=== PATIENT | male | born 1975 | race Caucasian/White ===

== ENCOUNTER → 2017-09-17 12:01 | Outpatient (CLI) | payer OTHER, SELFPAY ==
[2017-09-17 12:23] LABS: Specimen Label KIT TEST
== END ==
PROVIDERS: PCP Family Medicine; Visit Provider Dentist
DX: K21.9 Gastro-esophageal reflux disease without esophagitis (principal); J01.00 Acute maxillary sinusitis, unspecified
CPT/HCPCS: 36415

== ENCOUNTER → 2018-04-12 12:41 | Outpatient (REF) | payer OTHER, SELFPAY ==
[2018-04-12 12:45] LABS: Bacteria Urine None Seen
[2018-04-12 12:47] LABS: Appearance Urine UA CLEAR; Bilirubin Urine UA NEGATIVE (NEGATIVE); Color Urine UA YELLOW; Glucose Urine UA NEGATIVE (Normal); Ketones Urine UA TRACE (NEGATIVE); Leukocyte Esterase Urine UA NEGATIVE (NEGATIVE); Nitrite Urine UA NEGATIVE (Negative); Occult Blood Urine UA NEGATIVE (Negative); Protein Urine UA NEGATIVE (Negative); Specific Gravity Urine UA 1.025 (1.000-1.035); Urobilinogen Urine UA 0.2 E.U./dL (0.2); pH Urine UA 5.5 (4.5-8.0)
[2018-04-12 12:55] LABS: RBC Urine 0-1/HPF (0-5/HPF); Squamous Epithelial Cell Urine 0-1 /HPF; WBC Urine 0-1/HPF (0-5/HPF)
== END ==
LOC: LAB 12:41
PROVIDERS: PCP Family Medicine; Visit Provider Family Medicine
DX: R35.0 Frequency of micturition (principal); N20.0 Calculus of kidney
CPT/HCPCS: 81001

== ENCOUNTER → 2018-05-15 11:34 | Outpatient (CLI) | payer OTHER, SELFPAY | PROVIDERS: PCP Family Medicine; Visit Provider Family Medicine | DX: M79.602 Pain in left arm (principal); R20.2 Paresthesia of skin | CPT/HCPCS: 95885; 95886; 95911 ==